=== PATIENT | female | born 1960 | race Caucasian/White ===

== ENCOUNTER 2017-01-15 17:30 | Emergency (ER) | payer MEDICAID, OTHER ==
[2017-01-15 18:30] LABS: AMPHETAMINE, URINE NEG (NEG); AUTOMATED NEUTROPHIL # 4.5 TH/MM3 (1.8-7.7); BARBITURATES, URINE NEG (NEG); BASOPHIL # 0.1 TH/MM3 (0-0.2); BASOPHIL % 0.8 % (0.0-2.0); COCAINE, URINE NEG (NEG); EOSINOPHIL # 0.2 TH/MM3 (0-0.4); EOSINOPHIL % 2.5 % (0.0-4.0); HEMATOCRIT 38.7 % (35.0-46.0); HEMO FLAGS DIFF FINAL; LYMPH % 32.5 % (9.0-44.0); LYMPHOCYTE # 2.5 TH/MM3 (1.0-4.8); MEAN CELL VOLUME 76.4 FL (80.0-100.0); MEAN CORPUSCULAR HEMOGLOBIN 24.3 PG (27.0-34.0); MEAN CORPUSCULAR HGB CONC 31.8 % (32.0-36.0); MONO % 4.7 % (0.0-8.0); NEUT % 59.5 % (16.0-70.0); PLATELET COUNT 335 TH/MM3 (150-450); RED BLOOD COUNT 5.07 MIL/MM3 (4.00-5.30); RED CELL DISTRIBUTION WIDTH 18.3 % (11.6-17.2); WHITE BLOOD COUNT 7.6 TH/MM3 (4.0-11.0)
--- NOTE | 2017-01-15 18:37 | PD ---
HPI Chief Complaint: Psychiatric Symptoms Time Seen by Provider: 18:32 Travel History International Travel<30 days: No Contact w/Intl Traveler<30days: No Traveled to known affect area: No History of Present Illness HPI 56-year-old female that presents to the ED for evaluation of psychiatric symptoms. Patient was Pagan acted by police after she made suicidal statements. Patient has a chronic history depression that she's been dealing by herself. Per patient she was recently diagnosed with abdominal cancer that was resected take and had no issues from it. Per patient he was completely resected and she no longer needs surgery or any other treatment. Per patient she's been dealing with depression especially worse for the past 2 weeks secondary to family stressors. Per patient she feels that "life is not worth living ". She states that she has no plan but feels very depressed. She takes no medications. She has not seen anybody for this. She has a history of hypertension as well as chronic opiate abuse for which she takes methadone. She denies any other medical issues. Symptoms again have been worsening for the past 2 weeks. She states that she's been having depression like symptoms for a couple months. Per patient she feels and it done. Does not want to do anything. Denies any substance abuse. PFSH Past Medical History Depression: Yes Cancer: Yes (Duodenal cancer per patient) Hypertension: Yes Social History Alcohol Use: No Tobacco Use: No Substance Use: No Review of Systems Except as stated in HPI: all other systems reviewed are Neg Physical Exam Narrative GENERAL: SKIN: Warm and dry. HEAD: Atraumatic. Normocephalic. EYES: Pupils equal and round. No scleral icterus. No injection or drainage. ENT: No nasal bleeding or discharge. Mucous membranes pink and moist. Tongue is midline. No uvula deviation. NECK: Trachea midline. No JVD. CARDIOVASCULAR: Regular rate and rhythm. No murmurs, S3, S4. RESPIRATORY: No accessory muscle use. Clear to auscultation. Breath sounds equal bilaterally. GASTROINTESTINAL: Abdomen soft, non-tender, nondistended. Hepatic and splenic margins not palpable. MUSCULOSKELETAL: Extremities without clubbing, cyanosis, or edema. No obvious deformities. Full range of motion of the upper and lower extremities bilaterally. 2+ pulses bilaterally. NEUROLOGICAL: Awake and alert. No obvious cranial nerve deficits. Motor grossly within normal limits. Five out of 5 muscle strength in the arms and legs. Normal speech. PSYCHIATRIC: Depressed mood and affect; insight and judgment normal. Data Data Orders Complete Blood Count With Diff (01/15/17 17:37) Comprehensive Metabolic Panel (01/15/17 17:37) Psych Screen (01/15/17 17:37) Drug Screen, Random Urine (01/15/17 17:37) Alcohol (Ethanol) (01/15/17 17:37) Salicylates (Aspirin) (01/15/17 17:37) Tylenol (Acetaminophen) (01/15/17 17:37) Labs Laboratory Tests Test 01/15/17 17:50 White Blood Count 7.6 TH/MM3 Red Blood Count 5.07 MIL/MM3 Hemoglobin 12.3 GM/DL Hematocrit 38.7 % Mean Corpuscular Volume 76.4 FL Mean Corpuscular Hemoglobin 24.3 PG Mean Corpuscular Hemoglobin 31.8 % Concent Red Cell Distribution Width 18.3 % Platelet Count 335 TH/MM3 Mean Platelet Volume 7.2 FL Neutrophils (%) (Auto) 59.5 % Lymphocytes (%) (Auto) 32.5 % Monocytes (%) (Auto) 4.7 % Eosinophils (%) (Auto) 2.5 % Basophils (%) (Auto) 0.8 % Neutrophils # (Auto) 4.5 TH/MM3 Lymphocytes # (Auto) 2.5 TH/MM3 Monocytes # (Auto) 0.4 TH/MM3 Eosinophils # (Auto) 0.2 TH/MM3 Basophils # (Auto) 0.1 TH/MM3 CBC Comment DIFF FINAL Differential Comment MDM Medical Decision Making Medical Screen Exam Complete: Yes Emergency Medical Condition: Yes Medical Record Reviewed: Yes Interpretation(s) CBC Diagram 01/15/17 17:50 tox positive for benzos. Differential Diagnosis Depression versus suicidal ideation versus anxiety versus adjustment disorder versus mood disorder versus bipolar disorder versus schizophrenia versus paranoid disorder versus psychosis versus substance abuse versus alcohol abuse versus alcohol induced psychosis versus homicidality addition versus cutting versus personality disorder Narrative Course 56-year-old female that presents to the ED for evaluation of psych. Patient was properly examined and was found to have signs and symptoms consistent psychiatric illness. No sign of acute medical distress. Labs were ordered. Patient was medically cleared. Okay to be seen by psych. Mental health screening was discussed with the patient. Diagnosis Primary Impression: Depression Qualified Code: F33.1 - Moderate episode of recurrent major depressive disorder Carlos Felix Jan 15, 2017 18:37
[2017-01-15 18:39] LABS: ANION GAP 7 MEQ/L (5-15); AST (GOT) 10 U/L (15-37); BLOOD UREA NITROGEN 15 MG/DL (7-18); CHLORIDE 102 MEQ/L (98-107); GLOMERULAR FILTRATION RATE 57 ML/MIN (>89); POTASSIUM 3.7 MEQ/L (3.5-5.1); SODIUM (NA) 141 MEQ/L (136-145)
[2017-01-15 18:40] LABS: ALT (GPT) 21 U/L (10-53)
[2017-01-15 18:43] LABS: ACETAMINOPHEN LESS THAN 2.0 MCG/ML (10.0-30.0); ALKALINE PHOSPHATASE 91 U/L (45-117); TOTAL BILIRUBIN ADULT 0.3 MG/DL (0.2-1.0)
[2017-01-15 19:12] VITALS: BP 103/52; PULSE 77; RESP 20; O2SAT 94
[2017-01-15] MEDS ORDERED: METH40TA PO (19:31)
[2017-01-15] MEDS ORDERED: PROT40TA PO (19:31)
[2017-01-15] MEDS ORDERED: LISI40TA PO (19:31)
[2017-01-15] MEDS ORDERED: LORazepam 1 MG TAB PO ONE (20:00)
[2017-01-15] MEDS ORDERED: TRAZ50TA12 PO (20:55)
[2017-01-15 22:00] VITALS: BP 133/65; PULSE 58
[2017-01-15] MEDS ORDERED: traZODone HCL 100 MG TAB PO ONE (22:00)
[2017-01-16 01:51] VITALS: BP 104/54; PULSE 67; RESP 18
[2017-01-16 06:02] VITALS: BP 102/50; PULSE 62; RESP 18
[2017-01-16 11:05] VITALS: BP 121/56; PULSE 58; RESP 16; O2SAT 92
--- NOTE | 2017-01-16 13:30 | PD ---
History of Present Illness Chief Complaint: Psychiatric Symptoms Time Seen by Provider: 13:30 Travel History International Travel<30 Days: No Contact w/Intl Traveler<30days: No Known affected area: No Legal Status Legal Status: Pagan Act Pagan Act Signed By: Freddy Denson History of Present Illness: 56-year-old female who his methadone dependent, reportedly sent here by her insurance company for treatment of her opiate dependence and resultant depression. Patient informed that this is not a licensed methadone facility and she is threatening to kill herself if she does not get methadone because she is dependent on it. This physician offered prescriptions for 3 days' worth of her methadone at 60 mg per day and Paxil, an antidepressant she has taken previously and worked for her. Patient was encouraged to return to the methadone clinic where she usually receives her medication. She was also given referrals to outpatient treatment including [facility]. Once she received these prescriptions, the patient was no longer suicidal and did not require inpatient psychiatric hospitalization or Pagan act. PFSH Past Medical History Depression: Yes Cancer: Yes (Duodenal cancer per patient) Hypertension: Yes Psychiatric History Psychiatric History Hx Psychiatric Treatment: Patient states she has been treated as an outpatient History of Inpatient Treatment: No Guns or firearms in home: No Social History Hx Alcohol Use: No Hx Tobacco Use: No Hx Substance Use: No Substance Use Type: Synth Opiates-Pain Pills Hx of Substance Use Treatment: Yes Allergies-Medications (Allergen,Severity, Reaction): Coded Allergies: Codeine (Verified Allergy, Unknown, shortness of breath/rash, 01/15/17) Reported Meds & Prescriptions Reported Meds & Active Scripts Active Reported Trazodone (Trazodone HCl) 50 Mg Tab 100 Mg PO HS Methadone (Methadone HCl) 40 Mg Tab 40 Mg PO DAILY Protonix (Pantoprazole Sodium) 40 Mg Tab 40 Mg PO DAILY Lisinopril 40 Mg Tab 40 Mg PO DAILY Review of Systems Except as stated in HPI: all other systems reviewed are Neg Exam Alert: Yes [place]: Person, Place Mood: Anxious Affect: Appropriate Speech: Clear, Logical Eye Contact: Normal Memory Intact: Immediate, Recent, Remote Insight/Judgement Adequate. MDM Medical Decision Making Medical Record Reviewed: Yes Assessment/Plan Patient given 3 day supply of methadone and 1 month supply of Paxil. She is verbally akbar for safety and now reports no suicidal or homicidal ideation, plan or intent. Cognition is intact and patient exhibits no psychotic symptoms. She is felt to be manipulative but in an effort to prevent her from going into serious withdrawal, she was given prescriptions and referred for outpatient follow up. Orders Complete Blood Count With Diff (01/15/17 17:37) Comprehensive Metabolic Panel (01/15/17 17:37) Psych Screen (01/15/17 17:37) Drug Screen, Random Urine (01/15/17 17:37) Alcohol (Ethanol) (01/15/17 17:37) Salicylates (Aspirin) (01/15/17 17:37) Tylenol (Acetaminophen) (01/15/17 17:37) Lorazepam (Ativan) (01/15/17 20:00) Trazodone (Desyrel) (01/15/17 22:00) Diet Regular Basic (01/16/17 Breakfast) Diet Regular Basic (01/16/17 Lunch) Results Vital Signs Date Time Temp Pulse Resp B/P Pulse Ox O2 Delivery O2 Flow Rate FiO2 01/16/17 11:05 58 16 121/56 92 Room Air 01/16/17 06:02 62 18 102/50 01/16/17 01:51 67 18 104/54 01/15/17 22:00 58 133/65 Room Air 01/15/17 19:12 77 20 103/52 94 Room Air Laboratory Tests Test 01/15/17 17:50 White Blood Count 7.6 Red Blood Count 5.07 Hemoglobin 12.3 Hematocrit 38.7 Mean Corpuscular Volume 76.4 Mean Corpuscular Hemoglobin 24.3 Mean Corpuscular Hemoglobin 31.8 Concent Red Cell Distribution Width 18.3 Platelet Count 335 Mean Platelet Volume 7.2 Neutrophils (%) (Auto) 59.5 Lymphocytes (%) (Auto) 32.5 Monocytes (%) (Auto) 4.7 Eosinophils (%) (Auto) 2.5 Basophils (%) (Auto) 0.8 Neutrophils # (Auto) 4.5 Lymphocytes # (Auto) 2.5 Monocytes # (Auto) 0.4 Eosinophils # (Auto) 0.2 Basophils # (Auto) 0.1 CBC Comment DIFF FINAL Differential Comment Sodium Level 141 Potassium Level 3.7 Chloride Level 102 Carbon Dioxide Level 32.0 Anion Gap 7 Blood Urea Nitrogen 15 Creatinine 1.01 Estimat Glomerular Filtration 57 Rate Random Glucose 74 Calcium Level 9.1 Total Bilirubin 0.3 Aspartate Amino Transf 10 (AST/SGOT) Alanine Aminotransferase 21 (ALT/SGPT) Alkaline Phosphatase 91 Total Protein 7.7 Albumin 3.7 Salicylates Level LESS THAN 1.7 Urine Opiates Screen NEG Acetaminophen Level LESS THAN 2.0 Urine Barbiturates Screen NEG Urine Amphetamines Screen NEG Urine Benzodiazepines Screen POS Urine Cocaine Screen NEG Urine Cannabinoids Screen NEG Ethyl Alcohol Level LESS THAN 3 Diagnosis Primary Impression: Opiate dependence Ari Henderson MD Jan 16, 2017 13:30
[2017-01-16] MEDS ORDERED: METH10TA PO ×2 (13:32→16:11)
[2017-01-16] MEDS ORDERED: PAXI30TA7 PO (13:33)
== END 2017-01-16 14:52 | disposition home or self-care (01) ==
LOC: NEPE 17:30 → NEPJ 01-16 14:52
DX: F33.1 Major depressive disorder, recurrent, moderate (principal); F11.20 Opioid dependence, uncomplicated; I10 Essential (primary) hypertension
CPT/HCPCS: 80053; 80307; 85025; 99284

== ENCOUNTER 2017-09-03 05:48 | Emergency (ER) | payer MEDICAID, OTHER ==
[2017-09-03] MEDS: ACETAMINOPHEN/HYDROcodone 325 MG/5 MG TAB PO (06:17)
== END 2017-09-03 06:59 | disposition home or self-care (01) ==
LOC: NEPD 05:48
DX: S32.019A Unspecified fracture of first lumbar vertebra, initial encounter for closed fracture (principal); S32.029A Unspecified fracture of second lumbar vertebra, initial encounter for closed fracture; S20.221A Contusion of right back wall of thorax, initial encounter; J44.9 Chronic obstructive pulmonary disease, unspecified; I10 Essential (primary) hypertension; F32.9 Major depressive disorder, single episode, unspecified; F17.200 Nicotine dependence, unspecified, uncomplicated; W01.0XXA Fall on same level from slipping, tripping and stumbling without subsequent striking against object, initial encounter; Y92.511 Restaurant or cafe as the place of occurrence of the external cause
CPT/HCPCS: 72100; 99284

== ENCOUNTER 2018-09-26 10:48 | Inpatient (IN) ==
[2018-09-26 12:00] LABS: Baso # (Auto) 0.1 th/mm3 (0.0-0.2); Baso % (Auto) 0.8 % (0.0-2.0); Eos # (Auto) 0.1 th/mm3 (0.0-0.4); Eos % (Auto) 0.7 % (0.0-4.0); Hematocrit 35.4 % (35.0-46.0); Hemoglobin 11.5 gm/dL (11.6-15.3); Lymph # (Auto) 2.1 th/mm3 (1.0-4.8); Lymph % (Auto) 16.7 % (9.0-44.0); Mean Corpuscular HGB Conc 32.5 % (32.0-36.0); Mean Corpuscular Volume 86.2 fL (80.0-100.0); Mean Platelet Volume 7.8 fL (7.0-11.0); Mono # (Auto) 0.7 th/mm3 (0.0-0.9); Mono % (Auto) 5.8 % (0.0-8.0); Neut # (Auto) 9.4 th/mm3 (1.8-7.7); Platelet Count 251 th/mm3 (150-450); Red Cell Distribution Width 14.8 % (11.6-17.2); White Blood Count 12.4 th/mm3 (4.0-11.0)
[2018-09-26 12:09] LABS: Activated Partial Thrombo Time 26.6 sec (23.4-31.7); INR 1.2 Ratio; Prothrombin Time 11.7 sec (9.8-11.6)
[2018-09-26 12:19] LABS: Alkaline Phosphatase 84 U/L (45-117); Creatine Kinase 425 U/L (26-192); Total Protein 6.3 g/dL (6.4-8.2)
[2018-09-26 12:20] LABS: Alanine Aminotransferase 17 U/L (10-53); Albumin 2.8 g/dL (3.4-5.0); Anion Gap 8 meq/L (5-15); Aspartate Aminotransferase 39 U/L (15-37); Blood Urea Nitrogen 26 mg/dL (7-18); Calcium 7.7 mg/dL (8.5-10.1); Carbon Dioxide 25.1 meq/L (21.0-32.0); Chloride 107 meq/L (98-107); Glomerular Filtration Rate 45 mL/min (>89); Glucose,Random 82 mg/dL (74-106); Magnesium 1.8 mg/dL (1.5-2.5); Sodium 140 meq/L (136-145)
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
[2018-09-26 12:32] LABS: Creatine Kinase MB 4.2 ng/mL (0.5-3.6)
--- NOTE | 2018-09-26 12:45 | CT ---
EXAM DATE: 09/26/2018 12:38 PM EST AGE/SEX: 58 years / Female INDICATIONS: Altered mental status. Hypotensive. CLINICAL DATA: This is the patient's initial encounter. Patient reports that signs and symptoms have been present for 1 day and indicates a pain score of 0/10. MEDICAL/SURGICAL HISTORY: Hypertension. Chronic obstructive pulmonary disease. None. RADIATION DOSE: 56.35 CTDI (mGy) [place] [facility] [place]18/[place]. . TECHNIQUE: CT of the head without contrast. Using automated exposure control and adjustment of the mA and/or kV according to patient size, radiation dose was kept as low as reasonably achievable to ob tain optimal diagnostic quality images. DICOM format image data is available electronically for revi ew and comparison. FINDINGS: Cerebrum: The ventricles are normal for age. No evidence of midline shift, mass lesion, hemorrhage or acute infarction. No extraaxial fluid collections are seen. Posterior Fossa: The cerebellum and brainstem are intact. The 4th ventricle is midline. The cerebe llopontine angle is unremarkable. Extracranial: The visualized portion of the orbits is intact. Skull: The calvaria is intact. No evidence of skull fracture. CONCLUSION: 1. Negative for acute process . Electronically signed by: Usman Petersen MD Board Certified Radiologist 09/26/2018 12:44 PM EST
--- NOTE | 2018-09-26 12:48 | CT ---
EXAM DATE: 09/26/2018 12:42 PM EST AGE/SEX: 58 years / Female INDICATIONS: Altered mental status. Trauma. Moderate motion artifact CLINICAL DATA: This is the patient's initial encounter. Patient reports that signs and symptoms have been present for 1 day and indicates a pain score of 0/10. MEDICAL/SURGICAL HISTORY: Hypertension. Chronic obstructive pulmonary disease. None. RADIATION DOSE: 22.48 CTDI (mGy) COMPARISON: No prior exams available for comparison. TECHNIQUE: Contiguous axial images were obtained using helical multirow detector technique. The vol umetric data was post-processed with multiplanar reconstruction in oblique axial, sagittal, and coron al planes. Using automated exposure control and adjustment of the mA and/or kV according to patient s ize, radiation dose was kept as low as reasonably achievable to obtain optimal diagnostic quality jean-claude ges. DICOM format image data is available electronically for review and comparison. FINDINGS: Vertebrae: Normal vertebral body height. Alignment: Normal. No subluxation. C2-3: The bony spinal canal is normal in size. No evidence of disc bulge or herniation. The neural foramina are bilaterally patent. C3-4: The bony spinal canal is normal in size. No evidence of disc bulge or herniation. The neural foramina are bilaterally patent. C4-5: The bony spinal canal is normal in size. No evidence of disc bulge or herniation. The neural foramina are bilaterally patent. C5-6: The bony spinal canal is normal in size. No evidence of disc bulge or herniation. The neural foramina are bilaterally patent. C6-7: The bony spinal canal is normal in size. No evidence of disc bulge or herniation. The neural foramina are bilaterally patent. C7-T1: The bony spinal canal is normal in size. No evidence of disc bulge or herniation. The neura l foramina are bilaterally patent. CONCLUSION: 1. Negative CT scan of the cervical spine, moderate motion artifact makes detection of subtle abnorm alities difficult Electronically signed by: Usman Petersen MD Board Certified Radiologist 09/26/2018 12:47 PM EST
[2018-09-26 12:53] LABS: Bacteria,Urine Rare /hpf; Bilirubin,Urine Negative (Negative); Clarity,Urine Clear (Clear); Color,Urine Amber (Yellw/Straw); Glucose,Urine (UA) Negative (Negative); Hyaline Casts,Urine 9 /lpf (0-3); Leukocyte Esterase,Urine Negative (Negative); Mucus,Urine Few /lpf (Occasional); Nitrite,Urine Negative (Negative); Specific Gravity,Urine 1.026 (1.002-1.035); Squamous Epithelial Cell,Urine 1 /hpf (0-5); Urobilinogen,Urine 4 or Greater mg/dL (Less than 2)
[2018-09-26 13:00] LABS: Amphetamine Screen,Urine Neg (Neg); Barbiturate Screen,Urine Neg (Neg); Cannabinoid Screen,Urine Pos (Neg); Cocaine Screen,Urine Neg (Neg)
[2018-09-26] MEDS ORDERED: Clindamycin 600 mg/NS Premix 600 MG/50 ML PIGGYBACK IV.SIG STA (13:06)
[2018-09-26] MEDS ORDERED: Azithromycin Inj 500 MG in Sodium Chlor 0.9% Inj 250 ML IV.SIG ONE (13:06)
[2018-09-26 13:07] LABS: Opiate Screen,Urine Neg (Neg)
[2018-09-26] MEDS ORDERED: Naloxone Inj 0.4 MG/ML Vial IV.PUSH ONE (13:32)
[2018-09-26] MEDS ORDERED: Morphine Sulfate Inj 2 MG/ML Vial IV.PUSH ONE (14:25)
--- NOTE | 2018-09-26 14:35 | ED ---
HPI General Chief complaint: Overdose Stated complaint: respiratory/poss OD Time Seen by Provider: 09/26/18 11:09 Source: patient and EMS Mode of arrival: EMS Limitations: no limitations History of Present Illness HPI narrative: Patient is a 58 year old female who is brought in by EMS due to AMS. Per EMS, patient was at the Methadone clinic and was noted to have hypoxia and hypotension. Patient says she took her morning dose of Methadone as she has done for 4 years and denies other drug use. She is very somnolent and history is limited. She reports a cough and maybe hitting her head a few days ago. Related Data Home Medications Medication Instructions Recorded Confirmed albuterol sulfate 1 amp INHALATION Q4-6H PRN 09/26/18 09/26/18 albuterol sulfate [ProAir HFA] 2 puff INHALATION Q4-6H PRN 09/26/18 09/26/18 lisinopril 40 mg PO DAILY NEB 09/26/18 09/26/18 trazodone 1 tab PO HS 09/26/18 09/26/18 Allergies Allergy/AdvReac Type Severity Reaction Status Date / Time codeine Allergy Unknown shortness Unverified 09/03/17 05:52 of breath/rash Review of Systems ROS Unobtainable ROS Unobtainable: unobtainable due to mental status PMFSH Medical History Medical History Anxiety (Acute) Bipolar 1 disorder (Acute) COPD (chronic obstructive pulmonary disease) (Acute) Hypertension (Acute) Social History Social History Substance History: No History of Abuse Second Hand Smoke Exposure: No Smoking Status: Current every day smoker Tobacco Type: Cigarettes How Often Do You Have a Drink Containing Alcohol: Monthly or less Immunization History Tetanus Immunization: Unsure Exam Narrative Exam Narrative: GENERAL: Patient is sleeping, arouses to painful stimuli. SKIN: Focused skin assessment warm/dry. HEAD: Atraumatic. Normocephalic. EYES: Right pupil is smaller then the left, both reactive to light. ENT: Mucous membranes pink and moist. NECK: Trachea midline. No JVD. CARDIOVASCULAR: Regular rate and rhythm. No murmur appreciated. RESPIRATORY: No accessory muscle use. Coarse breath sounds throughout both lungs. Breath sounds equal bilaterally. GASTROINTESTINAL: Abdomen soft, non-tender, nondistended. MUSCULOSKELETAL: No obvious deformities. No clubbing. No cyanosis. No edema. NEUROLOGICAL: Lethargic. No obvious cranial nerve deficits. Motor grossly within normal limits. Normal speech. Course Initial Documented Vital Signs Temperature 98.5 F 09/26/18 10:58 Pulse Rate 83 09/26/18 10:58 Respiratory Rate 22 09/26/18 10:58 Blood Pressure 113/61 09/26/18 10:58 Pulse Oximetry 90 L 09/26/18 10:58 Last Documented Vital Signs Temperature 98.5 F 09/26/18 10:58 Pulse Rate 52 L 09/26/18 13:46 Respiratory Rate 23 09/26/18 13:46 Blood Pressure 113/62 09/26/18 12:47 Pulse Oximetry 99 09/26/18 12:47 Medical Decision Making MDM Narrative Medical decision making narrative: Patient is a 58 year old female who comes in due to hypoxia and AMS. She is very sleepy on arrival, awakens to painful stimuli. Noticed her pupils are unequal on exam. CT head performed shows no acute abnormalities. IV established, labs sent. Labs show slight elevation of WBC count to 12.4. XR concerning for extensive interstitial infiltrates. Patient became hypoxic with Oxygen saturation in the 80s. Given 0.4 mg of Narcan. She woke up and says she has been sick with a cough for about 6 weeks. She denies fever. She uses albuterol at home. She denies any drug use other than what she is prescribed. Given 3 duonebs. Given antibiotics including coverage for aspiration. Patient to be admitted for further management. Medical Screen Exam Complete: Yes Emergency Medical Condition: Yes Differential Diagnosis Differential Diagnosis: pneumonia vs COPD vs overdose vs head injury Medical Records Medical records reviewed: Yes I reviewed the patient's medical records. Lab Data Lab results reviewed: Yes I reviewed the patient's lab results. Result diagrams: 09/26/18 11:30 09/26/18 11:30 Lab Results 09/26/18 09/26/18 09/26/18 Range/Units 11:30 11:30 11:30 WBC 12.4 H (4.0-11.0) th/mm3 RBC 4.10 (4.00-5.30) mil/mm3 Hgb 11.5 L (11.6-15.3) gm/dL Hct 35.4 (35.0-46.0) % MCV 86.2 (80.0-100.0) fL MCH 28.0 (27.0-34.0) pg MCHC 32.5 (32.0-36.0) % RDW 14.8 (11.6-17.2) % Plt Count 251 (150-450) th/mm3 MPV 7.8 (7.0-11.0) fL Neut % (Auto) 76.0 H (16.0-70.0) % Lymph % (Auto) 16.7 (9.0-44.0) % [place] % (Auto) 5.8 (0.0-8.0) % Eos % (Auto) 0.7 (0.0-4.0) % Baso % (Auto) 0.8 (0.0-2.0) % Neut # (Auto) 9.4 H (1.8-7.7) th/mm3 Lymph # (Auto) 2.1 (1.0-4.8) th/mm3 [place] # (Auto) 0.7 (0.0-0.9) th/mm3 Eos # (Auto) 0.1 (0.0-0.4) th/mm3 Baso # (Auto) 0.1 (0.0-0.2) th/mm3 WBC Differential . Differential Comment Auto diff final PT 11.7 H (9.8-11.6) sec INR 1.2 Ratio APTT 26.6 (23.4-31.7) sec Sodium 140 (136-145) meq/L Potassium 4.0 (3.5-5.1) meq/L Chloride 107 (98-107) meq/L Carbon Dioxide 25.1 (21.0-32.0) meq/L Anion Gap 8 (5-15) meq/L BUN 26 H (7-18) mg/dL Creatinine 1.22 H (0.50-1.00) mg/dL Estimated GFR 45 L (>89) mL/min Random Glucose 82 (74-106) mg/dL Calcium 7.7 L (8.5-10.1) mg/dL Magnesium 1.8 (1.5-2.5) mg/dL Total Bilirubin 0.7 (0.2-1.0) mg/dL AST 39 H (15-37) U/L ALT 17 (10-53) U/L Alkaline Phosphatase 84 (45-117) U/L Total Creatine Kinase 425 H (26-192) U/L CK-MB (CK-2) 4.2 H (0.5-3.6) ng/mL CK-MB (CK-2) % 1.0 (0.0-4.0) % Troponin I Less than 0.02 L (0.02-0.05) ng/mL Total Protein 6.3 L (6.4-8.2) g/dL Albumin 2.8 L (3.4-5.0) g/dL Urine Color (Yellw/Straw) Urine Clarity (Clear) Urine pH (5.0-8.5) Ur Specific [place] (1.002-1.035) Urine Protein (Neg-Trace) mg/dL Urine Glucose (UA) (Negative) mg/dL Urine Ketones (Negative) mg/dL Urine Occult Blood (Negative) Urine Nitrate (Negative) Urine Bilirubin (Negative) Urine Urobilinogen (Less than 2) mg/dL Ur Leukocyte Esterase (Negative) Urine RBC (0-3) /hpf Urine WBC (0-5) /hpf Ur Squamous Epith Cells (0-5) /hpf Urine Bacteria (None) /hpf Hyaline Casts (0-3) /lpf Urine Mucus (Occasional) /lpf Micro UA Comment Ur Microscopic Review Urine Culture Comments Urine Opiates Screen (Neg) Ur Barbiturates Screen (Neg) Ur Amphetamines Screen (Neg) U Benzodiazepines Scrn (Neg) Urine Cocaine Screen (Neg) U Cannabinoids Screen (Neg) 09/26/18 09/26/18 09/26/18 Range/Units 11:30 12:20 Unknown WBC (4.0-11.0) th/mm3 RBC (4.00-5.30) mil/mm3 Hgb (11.6-15.3) gm/dL Hct (35.0-46.0) % MCV (80.0-100.0) fL MCH (27.0-34.0) pg MCHC (32.0-36.0) % RDW (11.6-17.2) % Plt Count (150-450) th/mm3 MPV (7.0-11.0) fL Neut % (Auto) (16.0-70.0) % Lymph % (Auto) (9.0-44.0) % [place] % (Auto) (0.0-8.0) % Eos % (Auto) (0.0-4.0) % Baso % (Auto) (0.0-2.0) % Neut # (Auto) (1.8-7.7) th/mm3 Lymph # (Auto) (1.0-4.8) th/mm3 [place] # (Auto) (0.0-0.9) th/mm3 Eos # (Auto) (0.0-0.4) th/mm3 Baso # (Auto) (0.0-0.2) th/mm3 WBC Differential Differential Comment PT (9.8-11.6) sec INR Ratio APTT (23.4-31.7) sec Sodium (136-145) meq/L Potassium (3.5-5.1) meq/L Chloride (98-107) meq/L Carbon Dioxide (21.0-32.0) meq/L Anion Gap (5-15) meq/L BUN (7-18) mg/dL Creatinine (0.50-1.00) mg/dL Estimated GFR (>89) mL/min Random Glucose (74-106) mg/dL Calcium (8.5-10.1) mg/dL Magnesium (1.5-2.5) mg/dL Total Bilirubin (0.2-1.0) mg/dL AST (15-37) U/L ALT (10-53) U/L Alkaline Phosphatase (45-117) U/L Total Creatine Kinase Cancelled (26-192) U/L CK-MB (CK-2) (0.5-3.6) ng/mL CK-MB (CK-2) % (0.0-4.0) % Troponin I (0.02-0.05) ng/mL Total Protein (6.4-8.2) g/dL Albumin (3.4-5.0) g/dL Urine Color Slime (Yellw/Straw) Urine Clarity Clear (Clear) Urine pH 5.0 (5.0-8.5) Ur Specific [place] 1.026 (1.002-1.035) Urine Protein Negative (Neg-Trace) mg/dL Urine Glucose (UA) Negative (Negative) mg/dL Urine Ketones Negative (Negative) mg/dL Urine Occult Blood Negative (Negative) Urine Nitrate Negative (Negative) Urine Bilirubin Negative (Negative) Urine Urobilinogen 4 or greater (Less than 2) mg/dL Ur Leukocyte Esterase Negative (Negative) Urine RBC 1 (0-3) /hpf Urine WBC 2 (0-5) /hpf Ur Squamous Epith Cells 1 (0-5) /hpf Urine Bacteria Rare H (None) /hpf Hyaline Casts 9 (0-3) /lpf Urine Mucus Few H (Occasional) /lpf Micro UA Comment Cath-culture ind Ur Microscopic Review Not Reportable Urine Culture Comments Cath-cult indicated Urine Opiates Screen Neg (Neg) Ur Barbiturates Screen Neg (Neg) Ur Amphetamines Screen Neg (Neg) U Benzodiazepines Scrn Pos H (Neg) Urine Cocaine Screen Neg (Neg) U Cannabinoids Screen Pos H (Neg) Imaging Data Radiologist's impression: Cervical Spine CT 09/26/18 11:21 CONCLUSION: 1. Negative CT scan of the cervical spine, moderate motion artifact makes detection of subtle abnormalities difficult Chest X-Ray 09/26/18 11:21 CONCLUSION: Significant change from comparison with substantial perihilar alveolar infiltrate. Head CT 09/26/18 11:21 CONCLUSION: 1. Negative for acute process . ECG Data EKG Prior to Arrival: No Attestation: I personally reviewed and interpreted this ECG as follows: Interpretation: ECG shows NSR at a rate of 77, no ST elevation or depression, normal intervals. Discharge Plan Discharge Disposition Patient Disposition: ED Admit(ED Internal Use Only) Discharge Condition Condition: Stable Discharge Order Discharge Orders: ED Use Only Admit Order (Routine); Ordered 09/26/18 Ordered By: Yani Dunn Discharge Details Diagnosis: Pneumonia, COPD (chronic obstructive pulmonary disease), Hypoxia Physicians Team ED Provider: Yani Dunn Primary Care Provider: UNKNOWN, Attending Provider: Sree Carrion Status ED Status: Admitted Patient
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
[2018-09-26] MEDS ORDERED: Acetaminophen 325 MG Tablet PO PRN (15:15)
[2018-09-26] MEDS ORDERED: Morphine Inj 4 MG/ML Vial ONE (15:20)
[2018-09-26] MEDS ORDERED: Clindamycin Inj 600 MG in Sodium Chlor 0.9% Inj 100 ML IV.SIG STA (15:54)
[2018-09-26] MEDS: Heparin - SQ 10,000 UNITS/ML Vial SQ SCH (16:09)
[2018-09-26 17:01] LABS: Creatine Kinase 366 U/L (26-192)
[2018-09-26 17:17] LABS: CKMB Percent 0.9 % (0.0-4.0); Creatine Kinase MB 3.3 ng/mL (0.5-3.6)
[2018-09-26] MEDS: Sod Chloride 0.9% Inj 1,000 ML IV.CONT SCH (19:08)
--- NOTE | 2018-09-26 19:49 | ECG ---
Date Performed: 09/26/2018 Time Performed: 11:12:21 PTAGE: 58 years EKG: Sinus rhythm NORMAL ECG NO PREVIOUS TRACING DOCTOR: Samuel Harris Interpretating Date/Time 09/26/2018 19:48:14
--- NOTE | 2018-09-26 20:32 | XR ---
EXAM DATE: 09/26/2018 8:28 PM EST AGE/SEX: 58 years / Female INDICATIONS: . Short of breath. CLINICAL DATA: This is the patient's subsequent encounter. Patient reports that signs and symptoms h ave been present for 1 day and indicates a pain score of 0/10. MEDICAL/SURGICAL HISTORY: Non-responsive. Non-responsive. COMPARISON: No prior exams available for comparison. FINDINGS: Diffuse bilateral pulmonary infiltrates are noted consistent with severe pulmonary edema versus pneum onia. Clinical correlation is recommended. The heart is unremarkable. Shrapnel is noted within the le ft shoulder and upper arm. Mild compression deformities are noted throughout the lower thoracic and u pper lumbar spine. CONCLUSION: 1. Diffuse pulmonary infiltrates consistent with severe pulmonary edema versus pneumonia. Clinical c orrelation is recommended. 2. Mild compression deformities involving the lower thoracic and upper lumbar spine. Electronically signed by: Warner Sanchez MD Board Certified Radiologist 09/26/2018 8:31 PM EST
[2018-09-26] MEDS: LORazepam 0.5 MG Tablet PO SCH (21:21)
[2018-09-26] MEDS: MethylPREDNISolone Sod Succinate Inj 40 MG/ML Vial IV.PUSH SCH (21:23)
[2018-09-26] MEDS: traZODone 50 MG Tablet PO SCH (21:23)
[2018-09-26] MEDS: Senna/Docusate Sodium 8.6/50 MG Tablet PO SCH (21:23)
[2018-09-26] MEDS ORDERED: Sodium Chlor 0.9% Inj 500 ML IV.SIG SCH (22:00)
[2018-09-26] MEDS ORDERED: Vancomycin Consult Pharmacy OTHER PRN (22:15)
[2018-09-26 22:33] LABS: Creatine Kinase 274 U/L (26-192)
[2018-09-26 22:45] LABS: CKMB Percent 0.7 % (0.0-4.0); Creatine Kinase MB 1.9 ng/mL (0.5-3.6)
[2018-09-27] MEDS: Piperacil/Tazo 4.5 GM Premix 4.5 GM/100 ML BAG IV.SIG SCH ×2 (00:02→05:25)
[2018-09-27] MEDS: Heparin - SQ 10,000 UNITS/ML Vial SQ SCH ×5 (00:04→23:46)
[2018-09-27] MEDS ORDERED: Vancomycin Inj 1,500 MG in Sodium Chlor 0.9% Inj 500 ML IV.SIG ONE (01:00)
[2018-09-27] MEDS: Sod Chloride 0.9% Inj 1,000 ML IV.CONT SCH ×3 (04:28→23:45)
[2018-09-27 05:50] LABS: Baso % (Auto) 0.1 % (0.0-2.0); Hematocrit 36.7 % (35.0-46.0); Hemoglobin 11.7 gm/dL (11.6-15.3); Lymph # (Auto) 0.6 th/mm3 (1.0-4.8); Lymph % (Auto) 6.6 % (9.0-44.0); Mean Corpuscular Hemoglobin 27.5 pg (27.0-34.0); Mean Corpuscular Volume 85.9 fL (80.0-100.0); Mean Platelet Volume 8.1 fL (7.0-11.0); Mono # (Auto) 0.2 th/mm3 (0.0-0.9); Mono % (Auto) 1.9 % (0.0-8.0); Neut # (Auto) 7.8 th/mm3 (1.8-7.7); Neut % (Auto) 91.4 % (16.0-70.0); Platelet Count 248 th/mm3 (150-450); Red Blood Count 4.27 mil/mm3 (4.00-5.30); Red Cell Distribution Width 14.3 % (11.6-17.2); White Blood Count 8.6 th/mm3 (4.0-11.0)
[2018-09-27 06:19] LABS: Calcium 8.3 mg/dL (8.5-10.1); Carbon Dioxide 23.6 meq/L (21.0-32.0); Potassium 4.5 meq/L (3.5-5.1)
[2018-09-27] MEDS: Lisinopril 20 MG Tablet PO SCH (09:20)
[2018-09-27] MEDS: LORazepam 1 MG Tablet PO SCH (09:21)
[2018-09-27] MEDS: Senna/Docusate Sodium 8.6/50 MG Tablet PO SCH ×2 (09:22→21:34)
[2018-09-27] MEDS: Methadone Liq 10 MG/10 ML UDC PO SCH (10:15)
[2018-09-27] MEDS: MethylPREDNISolone Sod Succinate Inj 40 MG/ML Vial IV.PUSH SCH ×2 (10:36→21:34)
--- NOTE | 2018-09-27 11:39 | ECG ---
Date Performed: 09/26/2018 Time Performed: 16:05:42 PTAGE: 58 years EKG: Sinus rhythm NORMAL ECG Since the PREVIOUS TRACING , no significant change noted PREVIOUS TRACIN09/26/2018 11.12 DOCTOR: Man Vinson Interpretating Date/Time 09/27/2018 11:36:15
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
[2018-09-27] MEDS: LORazepam 0.5 MG Tablet PO SCH ×2 (14:56→21:34)
[2018-09-27] MEDS: traZODone 50 MG Tablet PO SCH (21:35)
[2018-09-28 05:59] LABS: Baso % (Auto) 0.4 % (0.0-2.0); Hematocrit 34.6 % (35.0-46.0); Hemoglobin 11.1 gm/dL (11.6-15.3); Lymph # (Auto) 0.7 th/mm3 (1.0-4.8); Lymph % (Auto) 5.9 % (9.0-44.0); Mean Corpuscular HGB Conc 32.1 % (32.0-36.0); Mean Corpuscular Hemoglobin 27.9 pg (27.0-34.0); Mean Corpuscular Volume 86.8 fL (80.0-100.0); Mean Platelet Volume 8.4 fL (7.0-11.0); Mono # (Auto) 0.5 th/mm3 (0.0-0.9); Mono % (Auto) 4.2 % (0.0-8.0); Neut # (Auto) 10.8 th/mm3 (1.8-7.7); Neut % (Auto) 89.5 % (16.0-70.0); Platelet Count 286 th/mm3 (150-450); Red Blood Count 3.99 mil/mm3 (4.00-5.30); Red Cell Distribution Width 14.3 % (11.6-17.2); White Blood Count 12.1 th/mm3 (4.0-11.0)
[2018-09-28 06:31] LABS: Calcium 8.6 mg/dL (8.5-10.1); Carbon Dioxide 25.9 meq/L (21.0-32.0); Potassium 4.8 meq/L (3.5-5.1)
[2018-09-28] MEDS: Sod Chloride 0.9% Inj 1,000 ML IV.CONT SCH (08:20)
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
[2018-09-28] MEDS: Heparin - SQ 10,000 UNITS/ML Vial SQ SCH (08:56)
[2018-09-28] MEDS: Methadone Liq 10 MG/10 ML UDC PO SCH (08:57)
[2018-09-28] MEDS: LORazepam 1 MG Tablet PO SCH (08:57)
[2018-09-28] MEDS: Senna/Docusate Sodium 8.6/50 MG Tablet PO SCH (08:57)
[2018-09-28] MEDS: Lisinopril 20 MG Tablet PO SCH (08:57)
--- NOTE | 2018-09-28 08:57 | P.DCO ---
- Physical Therapy Order: Evaluate and treat - Occupational Therapy Order: Evaluate and treat - Home Health Nursing Order: Medical education, Signs/symptoms of disease process, Oxygen administration education - Wastewater Manager Order: To evaluate: Living conditions/environment - Case Management Consult Case Management Consult-Home Health: Yes - Certification I have seen patient Viki Cavazos on 09/28/18. My clinical findings support the need for the requested home health care services because: Limited mobility due to disease progression, Patient has SOB, Deconditioned with increased weakness, High risk of falls I certify that my clinical findings support that this patient is homebound because: Hx COPD - exertion dyspnea/weakness, Unsteady gait/balance
[2018-09-28] MEDS ORDERED: predniSONE 20 MG Tablet PO SCH (09:00)
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
[2018-09-28] MEDS: LORazepam 0.5 MG Tablet PO SCH (11:57)
--- NOTE | 2018-09-28 15:36 | P.DS ---
Date of admission: 09/26/18 14:29 Primary care physician: UNKNOWN Brief History from admission: Patient is a 58 year old female who presents to the [place] ED for evaluation of shortness of breath. For the past two months, patient has been experiencing cold-like symptoms with "severe" shortness of breath on exertion and at rest. She reports congestion, sore throat and a productive cough with green-brown phlegm production. She also reports headache and sinus pressure. She has been experiencing fatigue and chills but denies fever. She denies earache. She denies recent weight gain. Patient was seen by her PCP approximately one month ago. At that time, she was prescribed an albuterol inhaler and a z-pack. She initially got better but experienced the same set of symptoms a week later. Symptoms have been consistent since then. Patient reports she started to feel much worse yesterday. She is confused about the last 24 hours; she reports being told by a nurse at the Methadone clinic yesterday that she is having "the worst case of pneumonia." Patient believes she was seen then taken to [place]. Events likely took place this morning as there is no record of patient being seen at [facility] yesterday. During encounter, she complains of shortness of breath and feeling confused; "I was not sure what I was talking about." She also reports of back and leg pain, which she attributes to "not having Methadone" today. Per Methadone clinic, patient received 75mg at 08:08 this morning. Patient however received naloxone in ED. DS: Medications - Discharge Medications Prescriptions: levofloxacin [Levaquin] 750 mg PO DAILY 8 Days #8 tab prednisone See Taper PO DAILY 6 Days #14 tab DS: Summary Hospital Course: Patient was found to have community-acquired pneumonia. She was treated with Levaquin IV. She also received 1 dose each of vancomycin and Zosyn. The patient was also started on steroids. She required supplemental oxygen to keep sats greater than 92%. She was sent home with supplemental oxygen, an additional 8-days of Levaquin, and a prednisone taper. She was to follow-up with with her primary care provider. - Time Spent with Patient Total time spent providing and/or coordinating discharge services: Greater than 30 minutes - Quality: VTE Deep Vein Thrombosis/Pulmonary Embolism Present on Admission: No Exam Vital signs: Vital Signs 09/27/18 16:00 02/14/19 20:00 09/27/18 21:15 Temperature 98.2 F 98.1 F Pulse Rate 59 L 65 Respiratory Rate 16 22 Blood Pressure 108/56 L 125/67 Pulse Oximetry 91 L 93 L 93 L Pulse Oximetry [Resting on Room Air] Pulse Oximetry [Resting with Oxygen] 09/28/18 00:00 09/28/18 08:00 09/28/18 10:02 Temperature 97.9 F 98.5 F Pulse Rate 63 60 Respiratory Rate 24 18 Blood Pressure 133/62 132/62 Pulse Oximetry 90 L 96 93 L Pulse Oximetry [Resting on Room Air] Pulse Oximetry [Resting with Oxygen] 09/28/18 10:10 09/28/18 10:11 09/28/18 11:33 Temperature 98.2 F Pulse Rate 63 Respiratory Rate 16 Blood Pressure 123/58 L Pulse Oximetry 92 L Pulse Oximetry [Resting on Room Air] 87 L Pulse Oximetry [Resting with Oxygen] 92 L 09/28/18 12:07 Temperature 98.1 F Pulse Rate 70 Respiratory Rate 18 Blood Pressure 120/57 L Pulse Oximetry 95 Pulse Oximetry [Resting on Room Air] Pulse Oximetry [Resting with Oxygen] Intake & Output 09/27/18 09/28/18 09/28/18 18:59 06:59 18:59 Intake Total 870 / 870 500 / 500 Output Total 700 / 700 Balance 170 / 170 500 / 500 Weight 73.6 kg Intake: IV 150 / 150 500 / 500 NS Inj 1,000 ML @ 100 mls/hr IV 500 / 500 .CONT .Q10H [facility] Rx#:[id number] Levaquin 750 mg Premix Inj 150 150 / 150 ML @ 100 mls/hr IV.SIG Q24H JOANIE Rx#:[id number] Oral 720 / 720 Output: Urine 700 / 700 Other: # Voids 11 Date of Last Bowel Movement 09/26/18 Results Procedures completed during hospitalization: NONE Labs on day of discharge: Labs from last 24 hours 09/28/18 09/28/18 04:38 04:38 WBC 12.1 H RBC 3.99 L Hgb 11.1 L Hct 34.6 L MCV 86.8 MCH 27.9 MCHC 32.1 RDW 14.3 Plt Count 286 MPV 8.4 Neut % (Auto) 89.5 H Lymph % (Auto) 5.9 L [place] % (Auto) 4.2 Eos % (Auto) 0.0 Baso % (Auto) 0.4 Neut # (Auto) 10.8 H Lymph # (Auto) 0.7 L [place] # (Auto) 0.5 Eos # (Auto) 0.0 Baso # (Auto) 0.0 WBC Differential . Differential Comment Auto diff final Sodium 143 Potassium 4.8 Chloride 112 H Carbon Dioxide 25.9 Anion Gap 5 BUN 22 H Creatinine 0.85 Estimated GFR 69 L Random Glucose 143 H Calcium 8.6 Preliminary micro results at discharge 09/26/18 15:40 Aerobic Blood Culture - Preliminary Blood - Peripheral No growth in 2 days Anaerobic Blood Culture - Preliminary No growth in 2 days 09/26/18 15:45 Aerobic Blood Culture - Preliminary Blood - Peripheral No growth in 2 days Anaerobic Blood Culture - Preliminary No growth in 2 days - Impressions ITS Impressions Cervical Spine CT 09/26/18 11:21 CONCLUSION: 1. Negative CT scan of the cervical spine, moderate motion artifact makes detection of subtle abnormalities difficult Head CT 09/26/18 11:21 CONCLUSION: 1. Negative for acute process . Chest X-Ray 09/28/18 06:00 CONCLUSION: Mild improvement with the bilateral interstitial and airspace pulmonary infiltrates. Discharge Plan - Discharge Disposition Patient Disposition: Disch W/Home Health Service - Discharge Condition Condition: Stable - Discharge Order Discharge Orders: Discharge Order (Routine); Ordered 09/28/18 Ordered By: Allegra Atwood R1 - Discharge Details Anticipated Discharge Date: 09/28/18 Discharge Comment: Okay to discharge when Care has been set up. Thank you! - Physicians Team Primary Care Provider: UNKNOWN, Attending Provider: Sree Carrion Other Providers: [facility],Insurance ; [facility],
== END 2018-09-28 16:40 | disposition home health service (06) | DRG 871 ==
LOC: NEPE 10:48 → NEDA 14:29 → N07 16:48
PROVIDERS: ADMIT Family Medicine; ATTEND Family Medicine
CPT/HCPCS: 70450; 71010; 71020; 71045; 71046; 72125; 80048; 80053; 80307; 81001; 82550; 82552; 83520; 83605; 83735; 83880; 84484; 85025; 85610; 85651; 85652; 85730; 87040; 87086; 87275; 87276; 87449; 87804; 90765; 90775; 93005; 94150; 94618; 94620; 94664; 96365; 96375; 97110; 97116; 97162; 97166; 97530; 99285; J0456; J0696; J1644; J1956; J2270; J2310; J2405; J2543; J2920; J3370; J7030; J7040; J7050; J7506; J7512; P9612